=== PATIENT | male | born 1960 | race Caucasian/White ===

== ENCOUNTER 2021-09-01 11:00 | Inpatient (IN) ==
[2021-09-01] MEDS ORDERED: Acetaminophen 325 MG TABLET PO ONE (11:35)
[2021-09-01] MEDS ORDERED: 0.9 % Sodium Chloride 1,000 ML IVC ONE (11:36)
[2021-09-01 12:07] LABS: Basophils % 0.1 %; Eosinophils % 0.1 %; Hematocrit 36.9 % (37.5-50.1); Hemoglobin 13.2 g/dL (12.9-16.9); Immature Granulocytes % 0.7 % (0-4); Lymphocytes # 0.4 K/mcL (0.6-4.6); Lymphocytes % 6.2 %; Mean Corpuscular HGB Conc 35.8 g/dL (31.6-35.5); Mean Corpuscular Hemoglobin 31.5 pg (28.0-33.3); Mean Corpuscular Volume 88.1 fL (83.0-100.0); Mean Platelet Volume 9.7 fL (9.4-12.4); Monocytes # 0.3 K/mcL (0.0-1.3); Monocytes % 3.9 %; Neutrophils # 6.2 K/mcL (1.6-8.9); Platelet Count 241 K/mcL (140-400); Red Blood Count 4.19 M/mcL (4.19-5.50)
[2021-09-01 12:19] LABS: INR 1.4; Prothrombin Time 15.6 Seconds (9.4-12.1)
[2021-09-01 12:21] LABS: Activated Partial Thrombo Time 30.3 Seconds (26.0-36.0)
[2021-09-01 12:32] LABS: Troponin I 0.03 ng/mL (< 0.04)
[2021-09-01 12:33] LABS: Alanine Aminotransferase 58 Units/L (7-52); Albumin 3.3 g/dL (3.5-5.7); Albumin/Globulin Ratio 1.1 (1.1-2.2); Alkaline Phosphatase 79 Units/L (34-104); Aspartate Amino Transferase 58 Units/L (13-39); BUN/Creatinine Ratio 18 (6-26); Bilirubin,Direct 0.4 mg/dL (0.0-0.2); Bilirubin,Indirect 0.8 mg/dL (0.0-1.0); Bilirubin,Total 1.2 mg/dL (0.3-1.0); Blood Urea Nitrogen 21 mg/dL (6-20); C-Reactive Protein 239 mg/L (Less than 10); Calcium 9.8 mg/dL (8.6-10.3); Carbon Dioxide 25 mEq/L (23-29); Chloride 93 mEq/L (98-107); Globulin 3.1 g/dL (2.4-3.5); Glucose 124 mg/dL (70-105); Lactate Dehydrogenase 469 Units/L (140-271); Magnesium 2.2 mg/dL (1.6-2.6); Osmolality,Calculated 270 (280-300); Phosphorous 2.1 mg/dL (2.7-4.5); Potassium 3.8 mEq/L (3.5-5.1); Sodium 128 mEq/L (136-145); Total Protein 6.4 g/dL (6.4-8.9); eGFR For African Americans > 60 (> 60); eGFR For Non-African Americans > 60 (> 60)
[2021-09-01 12:48] LABS: Ferritin > 1500 ng/mL (20-250)
[2021-09-01] MEDS ORDERED: Melatonin 3 MG TABLET PO PRN (14:52)
[2021-09-01] MEDS ORDERED: Ondansetron ODT 4 MG TAB.RAPDIS SL PRN (14:52)
[2021-09-01] MEDS ORDERED: Naloxone 0.4 MG/ML INJ IVP PRN (14:52)
[2021-09-01] MEDS ORDERED: Isovue-370 500 ML BOTTLE IVP ONE (15:08)
[2021-09-01] MEDS ORDERED: Albuterol 2.5 MG/3 ML NEBULIZER IH PRN (15:18)
[2021-09-01] MEDS: cefTRIAXone 1,000 MG in Water for inj. (sterile) 10 ML IVP SCH (16:51)
[2021-09-01] MEDS: Azithromycin 500 MG in 0.9 % Sodium Chloride 250 ML IVPB SCH (17:01)
[2021-09-01 18:27] LABS: Basophils % 0.3 %; Hematocrit 38.5 % (37.5-50.1); Hemoglobin 13.1 g/dL (12.9-16.9); Immature Granulocytes % 0.8 % (0-4); Lymphocytes # 0.5 K/mcL (0.6-4.6); Lymphocytes % 7.4 %; Mean Corpuscular Hemoglobin 30.1 pg (28.0-33.3); Mean Corpuscular Volume 88.5 fL (83.0-100.0); Mean Platelet Volume 9.4 fL (9.4-12.4); Monocytes # 0.1 K/mcL (0.0-1.3); Monocytes % 1.8 %; Neutrophils # 5.9 K/mcL (1.6-8.9); Platelet Count 244 K/mcL (140-400); Red Blood Count 4.35 M/mcL (4.19-5.50); Segmented Neutrophils % 89.7 %; White Blood Count 6.6 K/mcL (4.3-11.1)
[2021-09-01 18:35] LABS: INR 1.4; Prothrombin Time 15.1 Seconds (9.4-12.1)
[2021-09-01 18:38] LABS: Activated Partial Thrombo Time 32.7 Seconds (26.0-36.0)
[2021-09-01 18:44] LABS: BUN/Creatinine Ratio 19 (6-26); Blood Urea Nitrogen 21 mg/dL (6-20); Calcium 9.7 mg/dL (8.6-10.3); Carbon Dioxide 23 mEq/L (23-29); Chloride 94 mEq/L (98-107); Glucose 214 mg/dL (70-105); Magnesium 2.4 mg/dL (1.6-2.6); Osmolality,Calculated 275 (280-300); Potassium 4.3 mEq/L (3.5-5.1); Sodium 128 mEq/L (136-145); eGFR For African Americans > 60 (> 60); eGFR For Non-African Americans > 60 (> 60)
[2021-09-01] MEDS: *HR* Heparin 5,000 UNIT/ML VIAL SQ SCH (19:37)
[2021-09-01] MEDS: Famotidine 20 MG TABLET PO SCH (23:00)
[2021-09-02 02:09] LABS: Basophils % 0.3 %; Hematocrit 40.3 % (37.5-50.1); Hemoglobin 13.6 g/dL (12.9-16.9); Immature Granulocytes % 0.7 % (0-4); Lymphocytes # 0.6 K/mcL (0.6-4.6); Lymphocytes % 7.9 %; Mean Corpuscular HGB Conc 33.7 g/dL (31.6-35.5); Mean Corpuscular Hemoglobin 30.8 pg (28.0-33.3); Mean Corpuscular Volume 91.2 fL (83.0-100.0); Mean Platelet Volume 9.9 fL (9.4-12.4); Monocytes # 0.3 K/mcL (0.0-1.3); Monocytes % 3.8 %; Neutrophils # 6.2 K/mcL (1.6-8.9); Platelet Count 218 K/mcL (140-400); Red Blood Count 4.42 M/mcL (4.19-5.50); Red Cell Distribution Width 13.2 % (11.5-14.5); Segmented Neutrophils % 87.3 %; White Blood Count 7.1 K/mcL (4.3-11.1)
[2021-09-02 02:31] LABS: BUN/Creatinine Ratio 21 (6-26); Blood Urea Nitrogen 19 mg/dL (6-20); Calcium 9.7 mg/dL (8.6-10.3); Carbon Dioxide 25 mEq/L (23-29); Chloride 98 mEq/L (98-107); Glucose 164 mg/dL (70-105); Osmolality,Calculated 280 (280-300); Phosphorous 2.6 mg/dL (2.7-4.5); Potassium 4.2 mEq/L (3.5-5.1); Sodium 132 mEq/L (136-145); eGFR For African Americans > 60 (> 60); eGFR For Non-African Americans > 60 (> 60)
[2021-09-02] MEDS: cefTRIAXone 1,000 MG in Water for inj. (sterile) 10 ML IVP SCH (08:14)
[2021-09-02] MEDS: Famotidine 20 MG TABLET PO SCH (08:15)
[2021-09-02] MEDS: *HR* Heparin 5,000 UNIT/ML VIAL SQ SCH ×2 (08:15→20:09)
[2021-09-02] MEDS ORDERED: Furosemide 20 MG/2 ML VIAL IVP ONE (12:00)
[2021-09-02] MEDS: Dexamethasone Sodium Phos/PF 10 MG/ML VIAL IVP SCH (12:31)
[2021-09-02] MEDS: Azithromycin 500 MG in 0.9 % Sodium Chloride 250 ML IVPB SCH (15:36)
[2021-09-02] MEDS: [UNRECOGNIZED DRUG - OTHER] PO SCH (20:49)
[2021-09-03] MEDS: Melatonin 3 MG TABLET PO SCH ×2 (00:42→15:14)
[2021-09-03] MEDS ORDERED: *HR* Enoxaparin 40 MG/0.4 ML SYRINGE SQ SCH (06:00)
[2021-09-03 06:27] LABS: BUN/Creatinine Ratio 33 (6-26); Blood Urea Nitrogen 31 mg/dL (6-20); Calcium 9.9 mg/dL (8.6-10.3); Carbon Dioxide 27 mEq/L (23-29); Chloride 97 mEq/L (98-107); Glucose 162 mg/dL (70-105); Osmolality,Calculated 288 (280-300); Potassium 4.5 mEq/L (3.5-5.1); Sodium 134 mEq/L (136-145); eGFR For African Americans > 60 (> 60); eGFR For Non-African Americans > 60 (> 60)
[2021-09-03] MEDS: cefTRIAXone 1,000 MG in Water for inj. (sterile) 10 ML IVP SCH (08:53)
[2021-09-03] MEDS: Ascorbic Acid 500 MG TABLET PO SCH (08:53)
[2021-09-03] MEDS: Multivit/Ca/Min/Fe/FA 1 TAB TABLET PO SCH (08:53)
[2021-09-03] MEDS: Dexamethasone Sodium Phos/PF 10 MG/ML VIAL IVP SCH (08:55)
[2021-09-03] MEDS: [UNRECOGNIZED DRUG - OTHER] PO SCH ×2 (08:55→20:19)
[2021-09-03] MEDS ORDERED: [UNRECOGNIZED DRUG - OTHER] PO SCH (09:00)
[2021-09-03] MEDS ORDERED: ZINC 30 MG PO SCH (09:00)
[2021-09-03 09:56] LABS: Basophils % 0.2 %; Hematocrit 38.8 % (37.5-50.1); Hemoglobin 13.3 g/dL (12.9-16.9); Immature Granulocytes % 1.1 % (0-4); Lymphocytes # 0.9 K/mcL (0.6-4.6); Lymphocytes % 6.8 %; Mean Corpuscular HGB Conc 34.3 g/dL (31.6-35.5); Mean Corpuscular Hemoglobin 31.4 pg (28.0-33.3); Mean Corpuscular Volume 91.7 fL (83.0-100.0); Mean Platelet Volume 10.1 fL (9.4-12.4); Monocytes # 0.5 K/mcL (0.0-1.3); Monocytes % 3.8 %; Platelet Count 284 K/mcL (140-400); Red Blood Count 4.23 M/mcL (4.19-5.50); Red Cell Distribution Width 13.1 % (11.5-14.5); Segmented Neutrophils % 88.1 %
[2021-09-03 09:58] LABS: Neutrophils # 11.4 K/mcL (1.6-8.9); White Blood Count 12.9 K/mcL (4.3-11.1)
[2021-09-03] MEDS ORDERED: Furosemide 40 MG/4 ML VIAL IVP ONE (12:01)
[2021-09-03] MEDS: Azithromycin 500 MG in 0.9 % Sodium Chloride 250 ML IVPB SCH (15:25)
[2021-09-03] MEDS: *HR* Enoxaparin 40 MG/0.4 ML SYRINGE SQ SCH (18:03)
[2021-09-04 05:21] LABS: Basophils % 0.2 %; Hematocrit 37.5 % (37.5-50.1); Hemoglobin 12.6 g/dL (12.9-16.9); Immature Granulocytes % 2.1 % (0-4); Lymphocytes # 1.1 K/mcL (0.6-4.6); Lymphocytes % 8.7 %; Mean Corpuscular HGB Conc 33.6 g/dL (31.6-35.5); Mean Corpuscular Hemoglobin 30.8 pg (28.0-33.3); Mean Corpuscular Volume 91.7 fL (83.0-100.0); Mean Platelet Volume 9.4 fL (9.4-12.4); Monocytes # 0.7 K/mcL (0.0-1.3); Monocytes % 5.6 %; Neutrophils # 10.5 K/mcL (1.6-8.9); Platelet Count 300 K/mcL (140-400); Red Blood Count 4.09 M/mcL (4.19-5.50); Red Cell Distribution Width 12.9 % (11.5-14.5); Segmented Neutrophils % 83.4 %; White Blood Count 12.6 K/mcL (4.3-11.1)
[2021-09-04 05:28] LABS: BUN/Creatinine Ratio 35 (6-26); Blood Urea Nitrogen 30 mg/dL (6-20); Calcium 9.6 mg/dL (8.6-10.3); Carbon Dioxide 29 mEq/L (23-29); Chloride 98 mEq/L (98-107); Glucose 139 mg/dL (70-105); Osmolality,Calculated 286 (280-300); Potassium 4.8 mEq/L (3.5-5.1); Sodium 134 mEq/L (136-145); eGFR For African Americans > 60 (> 60); eGFR For Non-African Americans > 60 (> 60)
[2021-09-04] MEDS: *HR* Enoxaparin 40 MG/0.4 ML SYRINGE SQ SCH ×2 (05:41→17:04)
[2021-09-04] MEDS: Multivit/Ca/Min/Fe/FA 1 TAB TABLET PO SCH (09:48)
[2021-09-04] MEDS: Ascorbic Acid 500 MG TABLET PO SCH (09:48)
[2021-09-04] MEDS: [UNRECOGNIZED DRUG - OTHER] PO SCH (09:49)
[2021-09-04] MEDS: [UNRECOGNIZED DRUG - OTHER] PO SCH ×2 (09:49→21:47)
[2021-09-04] MEDS: ZINC 30 MG PO SCH (09:49)
[2021-09-04] MEDS: Dexamethasone Sodium Phos/PF 10 MG/ML VIAL IVP SCH (09:50)
[2021-09-04] MEDS: cefTRIAXone 1,000 MG in Water for inj. (sterile) 10 ML IVP SCH (09:50)
[2021-09-04] MEDS: Sennosides/Docusate Sodium TABLET PO SCH ×2 (10:08→21:47)
[2021-09-04] MEDS: Azithromycin 500 MG in 0.9 % Sodium Chloride 250 ML IVPB SCH (15:13)
[2021-09-04] MEDS ORDERED: Albuterol 2.5 MG/3 ML NEBULIZER IH SCH (20:00)
[2021-09-05 04:04] LABS: Hematocrit 38.3 % (37.5-50.1); Hemoglobin 12.6 g/dL (12.9-16.9); Mean Corpuscular HGB Conc 32.9 g/dL (31.6-35.5); Mean Corpuscular Hemoglobin 30.2 pg (28.0-33.3); Mean Corpuscular Volume 91.8 fL (83.0-100.0); Mean Platelet Volume 9.2 fL (9.4-12.4); Platelet Count 286 K/mcL (140-400); Red Blood Count 4.17 M/mcL (4.19-5.50); Red Cell Distribution Width 12.8 % (11.5-14.5); White Blood Count 11.3 K/mcL (4.3-11.1)
[2021-09-05 04:25] LABS: Alanine Aminotransferase 58 Units/L (7-52); Albumin/Globulin Ratio 1.2 (1.1-2.2); Alkaline Phosphatase 76 Units/L (34-104); Aspartate Amino Transferase 28 Units/L (13-39); BUN/Creatinine Ratio 31 (6-26); Bilirubin,Total 0.6 mg/dL (0.3-1.0); Blood Urea Nitrogen 23 mg/dL (6-20); Calcium 9.5 mg/dL (8.6-10.3); Carbon Dioxide 27 mEq/L (23-29); Chloride 101 mEq/L (98-107); Globulin 2.6 g/dL (2.4-3.5); Glucose 130 mg/dL (70-105); Osmolality,Calculated 285 (280-300); Potassium 4.9 mEq/L (3.5-5.1); Sodium 135 mEq/L (136-145); Total Protein 5.6 g/dL (6.4-8.9); eGFR For African Americans > 60 (> 60); eGFR For Non-African Americans > 60 (> 60)
[2021-09-05] MEDS: *HR* Enoxaparin 40 MG/0.4 ML SYRINGE SQ SCH ×2 (05:50→16:59)
[2021-09-05] MEDS: Sennosides/Docusate Sodium TABLET PO SCH ×2 (08:49→21:14)
[2021-09-05] MEDS: [UNRECOGNIZED DRUG - OTHER] PO SCH (08:50)
[2021-09-05] MEDS: ZINC 30 MG PO SCH (08:50)
[2021-09-05] MEDS: Ascorbic Acid 500 MG TABLET PO SCH (08:50)
[2021-09-05] MEDS: Multivit/Ca/Min/Fe/FA 1 TAB TABLET PO SCH (08:50)
[2021-09-05] MEDS: [UNRECOGNIZED DRUG - OTHER] PO SCH ×2 (08:52→21:14)
[2021-09-05] MEDS: cefTRIAXone 1,000 MG in Water for inj. (sterile) 10 ML IVP SCH (08:53)
[2021-09-05] MEDS: Dexamethasone Sodium Phos/PF 10 MG/ML VIAL IVP SCH (08:54)
[2021-09-05] MEDS: Furosemide 40 MG/4 ML VIAL IVP SCH (12:16)
[2021-09-05] MEDS: Azithromycin 500 MG in 0.9 % Sodium Chloride 250 ML IVPB SCH (16:45)
[2021-09-06] MEDS: *HR* Enoxaparin 40 MG/0.4 ML SYRINGE SQ SCH (06:13)
[2021-09-06] MEDS ORDERED: CefTRIAXone 1,000 MG VIAL ONE (07:43)
[2021-09-06] MEDS: [UNRECOGNIZED DRUG - OTHER] PO SCH ×2 (08:37→19:59)
[2021-09-06] MEDS: [UNRECOGNIZED DRUG - OTHER] PO SCH (08:37)
[2021-09-06] MEDS: ZINC 30 MG PO SCH (08:37)
[2021-09-06] MEDS: Multivit/Ca/Min/Fe/FA 1 TAB TABLET PO SCH (08:38)
[2021-09-06] MEDS: Ascorbic Acid 500 MG TABLET PO SCH (08:38)
[2021-09-06] MEDS: Furosemide 40 MG/4 ML VIAL IVP SCH (08:40)
[2021-09-06] MEDS: cefTRIAXone 1,000 MG in Water for inj. (sterile) 10 ML IVP SCH (08:43)
[2021-09-06] MEDS: Sennosides/Docusate Sodium TABLET PO SCH ×2 (08:47→19:59)
[2021-09-06 09:17] LABS: Hematocrit 44.5 % (37.5-50.1); Mean Corpuscular HGB Conc 33.5 g/dL (31.6-35.5); Mean Corpuscular Volume 92.7 fL (83.0-100.0); Mean Platelet Volume 9.3 fL (9.4-12.4); Platelet Count 319 K/mcL (140-400); Red Cell Distribution Width 13.1 % (11.5-14.5); White Blood Count 12.9 K/mcL (4.3-11.1)
[2021-09-06 09:42] LABS: Alanine Aminotransferase 65 Units/L (7-52); Albumin 3.3 g/dL (3.5-5.7); Alkaline Phosphatase 80 Units/L (34-104); Aspartate Amino Transferase 29 Units/L (13-39); BUN/Creatinine Ratio 30 (6-26); Bilirubin,Total 0.6 mg/dL (0.3-1.0); Blood Urea Nitrogen 26 mg/dL (6-20); Calcium 9.8 mg/dL (8.6-10.3); Carbon Dioxide 29 mEq/L (23-29); Chloride 100 mEq/L (98-107); Globulin 3.2 g/dL (2.4-3.5); Glucose 96 mg/dL (70-105); Osmolality,Calculated 287 (280-300); Potassium 4.4 mEq/L (3.5-5.1); Sodium 136 mEq/L (136-145); Total Protein 6.5 g/dL (6.4-8.9); eGFR For African Americans > 60 (> 60); eGFR For Non-African Americans > 60 (> 60)
[2021-09-06 09:50] LABS: Hemoglobin 14.9 g/dL (12.9-16.9)
[2021-09-06] MEDS: Azithromycin 500 MG in 0.9 % Sodium Chloride 250 ML IVPB SCH (16:08)
[2021-09-07 01:43] LABS: Hematocrit 37.8 % (37.5-50.1); Mean Corpuscular HGB Conc 32.8 g/dL (31.6-35.5); Mean Corpuscular Volume 91.3 fL (83.0-100.0); Mean Platelet Volume 9.2 fL (9.4-12.4); Platelet Count 281 K/mcL (140-400); Red Blood Count 4.14 M/mcL (4.19-5.50); Red Cell Distribution Width 12.8 % (11.5-14.5); White Blood Count 11.9 K/mcL (4.3-11.1)
[2021-09-07 01:46] LABS: Hemoglobin 12.4 g/dL (12.9-16.9)
[2021-09-07 01:59] LABS: BUN/Creatinine Ratio 30 (6-26); Blood Urea Nitrogen 23 mg/dL (6-20); Calcium 9.3 mg/dL (8.6-10.3); Carbon Dioxide 29 mEq/L (23-29); Chloride 100 mEq/L (98-107); Glucose 138 mg/dL (70-105); Osmolality,Calculated 286 (280-300); Potassium 4.7 mEq/L (3.5-5.1); Sodium 135 mEq/L (136-145); eGFR For African Americans > 60 (> 60); eGFR For Non-African Americans > 60 (> 60)
[2021-09-07 02:10] LABS: Anisocytosis 1+ (Not Present); Lymphocytes # 0.2 K/mcL (0.6-4.6); Monocytes # 0.2 K/mcL (0.0-1.3); Platelet Estimate Normal (Normal)
[2021-09-07] MEDS: *HR* Enoxaparin 40 MG/0.4 ML SYRINGE SQ SCH (06:14)
[2021-09-07] MEDS: Sennosides/Docusate Sodium TABLET PO SCH ×2 (09:08→21:18)
[2021-09-07] MEDS: Dexamethasone Sodium Phos/PF 10 MG/ML VIAL IVP SCH (09:08)
[2021-09-07] MEDS: Multivit/Ca/Min/Fe/FA 1 TAB TABLET PO SCH (09:08)
[2021-09-07] MEDS: Ascorbic Acid 500 MG TABLET PO SCH (09:08)
[2021-09-07] MEDS: cefTRIAXone 1,000 MG in Water for inj. (sterile) 10 ML IVP SCH (09:08)
[2021-09-07] MEDS: Furosemide 40 MG/4 ML VIAL IVP SCH ×2 (09:11→21:18)
[2021-09-07] MEDS: [UNRECOGNIZED DRUG - OTHER] PO SCH ×2 (09:16→21:18)
[2021-09-07] MEDS: Azithromycin 500 MG in 0.9 % Sodium Chloride 250 ML IVPB SCH (15:30)
[2021-09-08 04:30] LABS: Basophils # 0.1 K/mcL (0.0-0.2); Basophils % 0.6 %; Eosinophils # 0.1 K/mcL (0.0-0.6); Eosinophils % 0.5 %; Hematocrit 39.4 % (37.5-50.1); Hemoglobin 13.1 g/dL (12.9-16.9); Immature Granulocytes % 7.7 % (0-4); Lymphocytes # 1.8 K/mcL (0.6-4.6); Lymphocytes % 13.8 %; Mean Corpuscular HGB Conc 33.2 g/dL (31.6-35.5); Mean Corpuscular Hemoglobin 30.4 pg (28.0-33.3); Mean Corpuscular Volume 91.4 fL (83.0-100.0); Mean Platelet Volume 9.2 fL (9.4-12.4); Monocytes # 0.9 K/mcL (0.0-1.3); Monocytes % 6.5 %; Neutrophils # 9.4 K/mcL (1.6-8.9); Platelet Count 303 K/mcL (140-400); Red Blood Count 4.31 M/mcL (4.19-5.50); Red Cell Distribution Width 12.8 % (11.5-14.5); Segmented Neutrophils % 70.9 %; White Blood Count 13.2 K/mcL (4.3-11.1)
[2021-09-08 04:49] LABS: BUN/Creatinine Ratio 30 (6-26); Blood Urea Nitrogen 27 mg/dL (6-20); Calcium 9.5 mg/dL (8.6-10.3); Carbon Dioxide 32 mEq/L (23-29); Chloride 97 mEq/L (98-107); Glucose 128 mg/dL (70-105); Osmolality,Calculated 287 (280-300); Potassium 4.3 mEq/L (3.5-5.1); Sodium 135 mEq/L (136-145); eGFR For African Americans > 60 (> 60); eGFR For Non-African Americans > 60 (> 60)
[2021-09-08 05:00] LABS: Platelet Estimate Normal (Normal)
[2021-09-08] MEDS: *HR* Enoxaparin 40 MG/0.4 ML SYRINGE SQ SCH (05:14)
[2021-09-08] MEDS: Multivit/Ca/Min/Fe/FA 1 TAB TABLET PO SCH (08:45)
[2021-09-08] MEDS: Sennosides/Docusate Sodium TABLET PO SCH ×2 (08:45→19:49)
[2021-09-08] MEDS: Furosemide 40 MG/4 ML VIAL IVP SCH ×2 (08:45→19:49)
[2021-09-08] MEDS: Ascorbic Acid 500 MG TABLET PO SCH (08:45)
[2021-09-08] MEDS: [UNRECOGNIZED DRUG - OTHER] PO SCH ×2 (08:45→19:49)
[2021-09-08] MEDS: Dexamethasone Sodium Phos/PF 10 MG/ML VIAL IVP SCH (08:45)
[2021-09-09 04:06] LABS: Hematocrit 43.6 % (37.5-50.1); Hemoglobin 14.5 g/dL (12.9-16.9); Mean Corpuscular HGB Conc 33.3 g/dL (31.6-35.5); Mean Corpuscular Hemoglobin 30.7 pg (28.0-33.3); Mean Corpuscular Volume 92.2 fL (83.0-100.0); Mean Platelet Volume 9.2 fL (9.4-12.4); Platelet Count 323 K/mcL (140-400); Red Blood Count 4.73 M/mcL (4.19-5.50); Red Cell Distribution Width 12.9 % (11.5-14.5); White Blood Count 14.3 K/mcL (4.3-11.1)
[2021-09-09 04:20] LABS: BUN/Creatinine Ratio 32 (6-26); Blood Urea Nitrogen 22 mg/dL (6-20); Calcium 10.3 mg/dL (8.6-10.3); Carbon Dioxide 33 mEq/L (23-29); Chloride 95 mEq/L (98-107); Glucose 117 mg/dL (70-105); Osmolality,Calculated 284 (280-300); Potassium 4.2 mEq/L (3.5-5.1); Sodium 135 mEq/L (136-145); eGFR For African Americans > 60 (> 60); eGFR For Non-African Americans > 60 (> 60)
[2021-09-09 04:28] LABS: Lymphocytes # 2.6 K/mcL (0.6-4.6); Monocytes # 0.6 K/mcL (0.0-1.3); Neutrophils # 10.3 K/mcL (1.6-8.9); Platelet Estimate Normal (Normal)
[2021-09-09 04:29] LABS: Smudge Cells Present (Not Present)
[2021-09-09] MEDS: *HR* Enoxaparin 40 MG/0.4 ML SYRINGE SQ SCH (05:35)
[2021-09-09] MEDS: Furosemide 40 MG/4 ML VIAL IVP SCH (09:03)
[2021-09-09] MEDS: Ascorbic Acid 500 MG TABLET PO SCH (09:04)
[2021-09-09] MEDS: Sennosides/Docusate Sodium TABLET PO SCH (09:04)
[2021-09-09] MEDS: Multivit/Ca/Min/Fe/FA 1 TAB TABLET PO SCH (09:04)
[2021-09-09] MEDS: Dexamethasone Sodium Phos/PF 10 MG/ML VIAL IVP SCH (09:04)
[2021-09-09] MEDS: [UNRECOGNIZED DRUG - OTHER] PO SCH (09:04)
[2021-09-09 09:42] VITALS: BP 124/79; PULSE 55; TEMP 97.9
[2021-09-09 10:54] VITALS: O2SAT 90
[2021-09-10] MEDS ORDERED: Furosemide 40 MG/4 ML VIAL IVP SCH (09:00)
== END 2021-09-09 14:05 | disposition home or self-care (01) | DRG 177 ==
LOC: 2NENU 11:00 → EMEROOARM 11:00 → SUATTDRO 14:30 → 2NENU 15:51
PROVIDERS: ADMIT Family Medicine; ATTEND Internal Medicine